=== PATIENT | female | born 1945 | race African-American/Black ===

== ENCOUNTER 2017-04-20 16:25 | Emergency (ER) | payer MEDICARE, OTHER ==
[~2017-04-20] VITALS: Ht 157.5 cm; Wt 74.2 kg
--- NOTE | 2017-04-20 16:34 | NUR ---
PRESENTS SELF TOE ED FOR TCHING TO R LOWER EXTREMITY AND L SIDE OF FACE X 6 DAYS. PATIENT IS AA3. IN NO APPARENT DISTRESS. RESPIRATION EVEN AND UNLABORED VSS
[2017-04-20 18:20] VITALS: BP 160/80
== END 2017-04-20 18:24 | disposition home or self-care (01) ==
LOC: ER 16:28
DX: M79.89 Other specified soft tissue disorders (principal); I10 Essential (primary) hypertension; Z96.651 Presence of right artificial knee joint
CPT/HCPCS: 93971; 99284; A4606; Z7610

== ENCOUNTER 2019-09-17 15:55 | Emergency (ER) | payer MEDICARE, OTHER ==
[~2019-09-17] VITALS: Ht 157.5 cm; Wt 74.8 kg
--- NOTE | 2019-09-17 16:10 | NUR ---
URINARY FREQUENCY AND LOW ABDOMINAL PAIN X 2 MONTHS. PATIENT A/OX4, BREATHING EVEN AND UNLABORED, NO SOB NOTED, NEEDS ATTENDED.
--- NOTE | 2019-09-17 16:15 | NUR ---
URINE SENT TO LAB
[2019-09-17 16:43] LABS: APPEARANCE,URINE Clear (CLEAR); BILIRUBIN,URINE Negative (NEGATIVE); BLOOD, URINE Negative Ery/uL (NEGATIVE); COLOR,URINE Yellow (YELLOW); KETONES,URINE Negative (NEGATIVE); LEUKOCYTE ESTERASE ,URINE Negative (NEGATIVE); NITRITE, URINE Negative (NEGATIVE); PROTEIN,URINE Negative (NEGATIVE); UGLUCOSE Negative (NEGATIVE); UROBILINOGEN,URINE 0.2 EU/dL (0.2)
[2019-09-17] MEDS ORDERED: NITROFURANTOIN/NITROFURAN MAC 100 MG CAPSULE ONE (17:25)
[2019-09-17 17:29] VITALS: BP 138/96
--- NOTE | 2019-09-17 17:29 | NUR ---
Patient discharged to home in stable condition. Written and verbal after care instructions given. Patient verbalizes understanding of instruction.
[2019-09-17] MEDS ORDERED: NITROFURANTOIN/NITROFURAN MAC 100 MG CAPSULE PO ONE (17:30)
== END 2019-09-17 17:29 | disposition home or self-care (01) ==
LOC: ER 16:13
DX: R30.0 Dysuria (principal); R35.0 Frequency of micturition; I10 Essential (primary) hypertension; Z96.651 Presence of right artificial knee joint
CPT/HCPCS: 81000-TC; 87086-TC

== ENCOUNTER 2020-02-15 06:45 | Emergency (ER) | payer MEDICARE ==
[~2020-02-15] VITALS: Ht 157.5 cm; Wt 70.3 kg
[2020-02-15 07:11] VITALS: BP 162/90
== END 2020-02-15 07:48 | disposition home or self-care (01) ==
LOC: ER 06:49
DX: R21 Rash and other nonspecific skin eruption (principal); I10 Essential (primary) hypertension; Z98.890 Other specified postprocedural states